=== PATIENT | female | born 1975 | race Two or more races ===

== ENCOUNTER 2020-02-25 17:40 | Emergency (ER) | payer SELFPAY ==
[~2020-02-25] VITALS: Ht 162.6 cm; Wt 82.6 kg
[2020-02-25 22:55] VITALS: BP 121/70
[2020-02-26] MEDS ORDERED: HYDROcodone-ACET 10/325MG TAB PO ONE (01:00)
== END 2020-02-26 01:23 | disposition home or self-care (01) ==
LOC: ER 17:41
DX: Z48.00 Encounter for change or removal of nonsurgical wound dressing (principal); M79.642 Pain in left hand; M79.645 Pain in left finger(s)
CPT/HCPCS: 73200